=== PATIENT | male | born 1950 | race Caucasian/White ===

== ENCOUNTER → 2020-06-24 | Outpatient (CLI) | payer MEDICARE ==
--- NOTE | 2020-06-24 17:21 | REP ---
INDICATION: PVD COMPARISON: None. TECHNIQUE: Real time cooper scale and Duplex Doppler evaluation of the bilateral lower extremity arterial vasculature using linear high frequency transducer. FINDINGS: Cooper scale and duplex doppler images demonstrate diffuse monophasic waveforms bilaterally. There is occlusion of the entire right superficial femoral artery and proximal right popliteal artery with reconstitution of the popliteal artery at the level of the knee. Diffuse severe plaquing is noted throughout the right lower extremity arterial structures. There is occlusion of the left profunda artery in the entire left superficial femoral artery. Very proximal left popliteal artery is occluded. There is reconstitution of the left popliteal artery at the level of the knee. Diffuse severe plaquing is noted throughout the left lower extremity arterial structures. LOULOU right 0.25 and left 0.50. Peak systolic velocities (cm/sec) Common femoral artery: Right 87; Left 61 Profunda femoris: Right 68; Left occluded SFA (proximal): Right occluded; Left occluded SFA (mid): Right occluded; Left occluded SFA (distal): Right occluded; Left occluded Popliteal artery: Right 19; Left 69 SHAGGY (prox.): Right 10; Left 31 Tibioperoneal trunk: Right 32; Left 42 WORKFORCE SPECIALIST (prox.): Right 55; Left 42 WORKFORCE SPECIALIST (distal): Right 8; Left 43 SHAGGY (distal): Right 20; Left 17 IMPRESSION: Severe diffuse plaquing bilaterally. There is occlusion of the superficial femoral arteries bilaterally with reconstitution of the popliteal arteries at the level of the knees. Left profunda is occluded. <Electronically signed by Héctor Cooper > 06/24/20 [id number]
== END ==
LOC: M RAD 14:18
PROVIDERS: ATTEND Podiatrist Foot & Ankle Surgery
DX: I73.9 Peripheral vascular disease, unspecified (principal); I70.92 Chronic total occlusion of artery of the extremities

== ENCOUNTER → 2020-07-15 | Outpatient (CLI) | payer MEDICARE ==
[2020-07-15 15:10] LABS: HEMATOCRIT 44.1 % (42.0-52.0); HEMOGLOBIN 13.9 g/dl (13.5-17.5); MEAN CORPUSCULAR HGB CONC 31.5 g/dl (32.0-36.5); MEAN CORPUSCULAR VOLUME 91.9 fl (80.0-96.0); PLATELET COUNT, AUTOMATED 169 10^3/uL (150-450); WHITE BLOOD COUNT 7.9 10^3/uL (4.0-10.0)
[2020-07-15 15:36] LABS: BLOOD UREA NITROGEN 12 MG/DL (7-18); CALCIUM LEVEL 9.5 MG/DL (8.8-10.2); CARBON DIOXIDE LEVEL 27 MEQ/L (21-32); CHLORIDE LEVEL 108 MEQ/L (98-107); CREATININE FOR GFR 1.26 MG/DL (0.70-1.30); GLOMERULAR FILTRATION RATE > 60.0 (>42); GLUCOSE, FASTING 110 MG/DL (70-100); POTASSIUM SERUM 4.4 MEQ/L (3.5-5.1); SODIUM LEVEL 139 MEQ/L (136-145)
== END ==
LOC: M LAB 14:35
PROVIDERS: ATTEND Physician Assistant
DX: I70.213 Atherosclerosis of native arteries of extremities with intermittent claudication, bilateral legs (principal)

== ENCOUNTER → 2020-08-11 | Outpatient (CLI) | payer MEDICARE ==
[~2020-08-11] MED LIST: ACET-683 PO; ACET25TA12 PO; ASPI81TA26 PO; ATOR40TA75 PO; CLOP75TA2 PO; IBUP-1114 PO; ISOVUE-300 61% 50ML VIAL As Ordered ONE; LIDOCAINE 1% MDV 20ML VIAL As Ordered ONE; MIDAZOLAM INJ 2MG/2ML VIAL (J2250 PER 1MG) As Ordered ONE; NEOM28.32 TOP; VARE05TA PO; fentaNYL 100 MCG/2 ML INJECTION (J3010) As Ordered ONE
--- NOTE | 2020-08-11 11:17 | ROOPDOC ---
[facility] Report Of Operation Report of Operation DATE OF PROCEDURE: 08/11/20 PREPROCEDURE DIAGNOSES: Atherosclerosis of the [place] arteries with right lower extremity rest pain and nonhealing wounds right foot POSTPROCEDURE DIAGNOSES: Same PROCEDURE: 1. Ultrasound-guided access left common femoral artery 2. Aortoiliofemoral arteriogram 3. Right lower extremity runoff 4. Predilation left iliac arteries with 6 x 100 [place] balloon 5. Stent left common iliac artery with a 9 x 57 express balloon expandable stent, extended into external iliac artery with 8 x 57 express balloon expandable stent 6. Completion arteriogram 7. Left lower extremity arteriogram with runoff 8. Mynx closure left common femoral artery SURGEON: Yojana Ellsworth MD ANESTHESIA: Local anesthesia 5 mL lidocaine. Moderate intravenous conscious sedation was supervised by Dr. Ellsworth. The patient was independently monitored by a registered nurse assigned to the Department of radiology using automated blood pressure, EKG, and pulse oximetry. The detailed sedation record is permanently stored in the hospital information system. The following is a brief sedation record: Start time 10:12, stop time 10:49, Versed 1 mg IV, fentanyl 50 g IV, heparin 2000 units IV. CONTRAST: 59 mL Isovue-300 INDICATION FOR PROCEDURE: This is a very pleasant 69-year-old gentleman with severe atherosclerosis in the [place] arteries, long-standing history of tobacco abuse, who sees Dr. Lester and has non-healing wounds of the right foot. He also has rest pain in the right lower extremity. Claudication is present in the left lower extremity. Risks benefits and alternatives to her right lower extremity arteriogram potential intervention were explained to the patient. He is agreeable to proceed. Informed consent was obtained. We had a long discussion today pre-and postprocedure about smoking cessation and the patient understands this is critical for limb preservation. INTERPRETATION: 1. The distal aorta is calcified but widely patent. The common iliac arteries are patent at the bifurcation, but the right common iliac artery occludes a few centimeters from its origin and does not reconstitute until the common femoral artery from collaterals from the lumbar arteries, inferior epigastric artery, the left iliac vessels. The right common iliac artery is ectatic but patent proximally, but then has heavy plaque and near occlusions throughout the midportion and extending into the external iliac artery. The hypogastric is patent. 2. The right common femoral artery has near occlusive bulky plaque in the midportion, then has some flow into the profunda with a total occlusion of the origin of the SFA. The profunda offer some collaterals for a short segment reconstitution of the SFA, then occlusion again with collaterals filling the tibial vessels at their origin. The entire distal SFA is occluded as well as the popliteal artery. However, with fairly good collateral flow in the upper leg, there is somehow 3 vessel runoff to the foot that is actually quite good. 3. After predilation of the left iliac system, there is improved luminal flow that should allow for balloon expandable stent placement. After deploying balloon expandable stents from the proximal origin of the common iliac artery to the distal external iliac artery, there is widely patent flow with no significant residual stenosis, no extravasation, no dissection, no embolization. There is improved flow through the collaterals from the left iliac system to the right side as well. 4. The left common femoral artery is calcified and ectatic but patent with good flow under the profunda. The SFAs occluded at the origin. There is good profunda flow down to the below-knee popliteal artery which is patent with 3 vessel runoff to the foot. There are good collateral vessels throughout the upper left lower extremity to compensate for SFA and proximal popliteal occlusion. REPORT OF OPERATION: The patient was brought to the [facility] graphic suite in stable condition. Bilateral groins were prepped and draped in sterile fashion. A timeout was performed. Sedation was administered without complication. Local anesthesia was administered to the skin and subcutaneous tissue over the left common femoral artery. A microneedle was used to access the artery under ultrasound guidance. A wire was passed through this access and the needle was removed. A 4 [place] sheath was placed flushed with saline. We could not advance a Glidewire easily into the distal aorta. Therefore, a quick arteriogram of the left iliac system through the sheath was performed. We found there was heavy near occlusive plaque in the distal common iliac artery, proximal external iliac artery. There is also irregularity of this plaque and I think our wire was getting caught under the plaque. However, after this imaging, I was able to navigate the wire and the triple-lumen up into the distal aorta. A flushing catheter was advanced over the wire and aortoiliofemoral arteriograms were performed, please interpretation above. I did try to cross antegrade through the occlusion in the right iliac artery, but this was a long-standing very calcified occlusion. I did not think we would be able to cross retrograde because I was not sure we can even get into the common femoral artery safely due to near occlusive plaque. If we were able to access the artery, I'm not sure we can get her sheath and far enough to allow us to trying cross, and the occlusion is so long-standing and calcified it did not think we would be successful. Therefore we did not make any further efforts to cross the right occluded iliac system. A runoff of the right lower extremity was performed from the catheter and the distal aorta. This allowed us to see collateral flow into the right leg from both the lumbar arteries, inferior epigastric artery, and the left iliac arteries. Please interpretation above. We then predilated the left iliac system with a 6 x 100 [place] balloon. Following this, arteriogram showed improved luminal flow. We are hopeful this would allow us to place the balloon expandable stent without the stent being dislodged on the calcium in the vessel. Subsequently we advanced a 9 x 57 express stent to the origin of the left common iliac artery. This was deployed and we then placed an 8 x 57 balloon expandable stent with a 1 cm overlap into the external iliac artery on the left. We also postdilated juncture of the stent with the 8 x 57 balloon. Completion arteriograms showed a marked improvement inflow through the left iliac system with no extravasation embolization or dissection. There was also improvement inflow from the left iliac system into the right iliac system through the collaterals. We then deployed a Mynx closure device the left common femoral artery with good hemostasis. Pressure was held and sterile dressings were applied. The patient was taken to recovery in stable condition. He tolerated the procedure well. ESTIMATED BLOOD LOSS: Approximately 5 mL. COMPLICATIONS: none. PLAN: Okay to resume home diet and medications. Patient will need Plavix for 60 days postprocedure. We will see him back in clinic to check his access site and discuss options for surgical intervention. I had a heart to heart with the patient that everything we are going to try to do to improve blood flow in his right leg is going to feel if he keeps smoking. He did quit recently for 2 weeks, but then started again. I have discussed with him that at this point it is either the cigarettes or limb salvage but not both. He understands this. I think the plan will be for bilateral common femoral endarterectomies, a [id number] femorofemoral bypass, with possible left to very distal below knee popliteal artery bypass with cadaver vein or greater saphenous vein. We will obtain a vein mapping today to see if the patient has suitable vein for bypass. Depending on clearance and his cardiac status, we may be able to accomplish all of this procedure on 1 surgery. However, he may have enough improvement to get out of rest pain and heal his foot with just an endarterectomy and femorofemoral bypass. This would for sure get him out of rest pain, but I'm not sure it would be enough blood flow to his foot. He has good tibial flow and good collaterals, and if he quit smoking, this added inflow was likely be enough. Technically, we could also consider a left femoropopliteal bypass as well, but since his symptoms in the left leg are not as severe and he has great collateral flow, I think improving his inflow through the iliac system and an endarterectomy at the time of femorofemoral bypass will likely be sufficient. I did discuss with the patient that he is risk for limb loss regardless if his foot and leg acutely decompensated while we are working him up for surgery. Therefore, we will expedite things as much as possible, but he needs to do his part and quit smoking. We appreciate the opportunity to participate in the care of this patient. YOJANA ELLSWORTH MD Aug 11, 2020 11:17
[2020-08-11 15:00] VITALS: BP 113/70
--- NOTE | 2020-08-14 19:08 | REP ---
INDICATION: BLE vein map GSV/LSV preop R fempop bypass COMPARISON: None. TECHNIQUE: Cooper scale and color Doppler evaluation of the right and left lower extremity using linear high frequency transducer. FINDINGS: Ultrasound examination of the bilateral lower extremity deep venous structures from the common femoral vein to the popliteal vein demonstrates normal compressibility, flow and wave patterns in response to respiration and augmentation. There is no evidence for deep venous thrombosis. Greater saphenous vein (GSF) diameter (mm) RIGHT / LEFT Proximal: 4.3 / 3.5 Mid thigh: 2.9 / 1.8 Distal thigh: 3.2 / 1.5 Proximal calf: 2.7 / 1.5 Mid calf: 3.2 / 1.4 Proximal SSV: 2.1 / 0.8 Mid SSV: 3.2 / 0.7 IMPRESSION: No evidence for deep venous thrombosis. <Electronically signed by Raji Maldonado > 08/14/20 [id number]
== END ==
LOC: M IRPRO 08:30
PROVIDERS: ATTEND Surgery Vascular Surgery
DX: I70.221 Atherosclerosis of native arteries of extremities with rest pain, right leg (principal); I70.235 Atherosclerosis of native arteries of right leg with ulceration of other part of foot; I70.213 Atherosclerosis of native arteries of extremities with intermittent claudication, bilateral legs; F17.210 Nicotine dependence, cigarettes, uncomplicated
CPT/HCPCS: 37221; 75630; 93970; 99152; 99153; C1725; C1760; C1769; C1876; C1887; C1894; G0463; J1644; J2250; J3010; Q9967

== ENCOUNTER → 2020-09-16 | Outpatient (CLI) | payer MEDICARE ==
[~2020-09-16] MED LIST changes: -ISOVUE-300 61% 50ML VIAL As Ordered ONE; -LIDOCAINE 1% MDV 20ML VIAL As Ordered ONE; -MIDAZOLAM INJ 2MG/2ML VIAL (J2250 PER 1MG) As Ordered ONE; -fentaNYL 100 MCG/2 ML INJECTION (J3010) As Ordered ONE
[2020-09-16 17:14] LABS: BASO % 0.4 % (0.0-1.0); EOS # 0.1 10^3/uL (0.0-0.5); EOS % 0.9 % (0.0-3.0); HEMATOCRIT 43.6 % (42.0-52.0); HEMOGLOBIN 13.6 g/dl (13.5-17.5); LYMPH # 2.1 10^3/uL (1.5-5.0); LYMPH % 27.8 % (24.0-44.0); MEAN CORPUSCULAR HEMOGLOBIN 28.2 pg (27.0-33.0); MEAN CORPUSCULAR HGB CONC 31.2 g/dl (32.0-36.5); MEAN CORPUSCULAR VOLUME 90.3 fl (80.0-96.0); MONO # 0.6 10^3/uL (0.0-0.8); MONO % 8.4 % (2.0-8.0); NEUTROPHILS # 4.7 10^3/uL (1.5-8.5); NEUTROPHILS % 62.1 % (36.0-66.0); PLATELET COUNT, AUTOMATED 215 10^3/uL (150-450); RED BLOOD COUNT 4.83 10^6/uL (4.30-6.10); WHITE BLOOD COUNT 7.6 10^3/uL (4.0-10.0)
[2020-09-16 17:52] LABS: ALBUMIN 4.1 GM/DL (3.2-5.2); ALT/SGPT 19 U/L (12-78); BILIRUBIN,TOTAL 0.5 MG/DL (0.2-1.0); BLOOD UREA NITROGEN 9 MG/DL (7-18); CALCIUM LEVEL 8.8 MG/DL (8.8-10.2); CARBON DIOXIDE LEVEL 25 MEQ/L (21-32); CHLORIDE LEVEL 104 MEQ/L (98-107); CREATININE FOR GFR 1.11 MG/DL (0.70-1.30); GLOMERULAR FILTRATION RATE > 60.0 (>42); GLUCOSE, FASTING 92 MG/DL (70-100); MAGNESIUM LEVEL 2.1 MG/DL (1.8-2.4); NT-PRO BNP 2040 PG/ML (<125); POTASSIUM SERUM 4.3 MEQ/L (3.5-5.1); SODIUM LEVEL 138 MEQ/L (136-145); TOTAL PROTEIN 7.5 GM/DL (6.4-8.2)
[2020-09-17 09:44] LABS: CHOLESTEROL LEVEL 145 MG/DL (<200); CHOLESTEROL RISK RATIO 2.843 (<5); HDL CHOLESTEROL 51 MG/DL (>40); LDL CHOLESTEROL 71 MG/DL (<100); NON-HDL-C 94 MG/DL; TRIGLYCERIDES LEVEL 115 MG/DL (<150)
== END ==
LOC: M LAB 15:50
PROVIDERS: ATTEND Internal Medicine Cardiovascular Disease
DX: R06.02 Shortness of breath (principal); I49.3 Ventricular premature depolarization; I73.9 Peripheral vascular disease, unspecified; R01.1 Cardiac murmur, unspecified; Z79.899 Other long term (current) drug therapy

== ENCOUNTER → 2020-09-24 | Outpatient (CLI) | payer MEDICARE ==
--- NOTE | 2020-09-24 14:15 | REPVR ---
PROCEDURE INFORMATION: Exam: CT Chest Without Contrast; Diagnostic Exam date and time: 09/24/2020 1:49 PM Age: 69 years old Clinical indication: Other: Copd; Additional info: Oth sign/symptom cirrculatory system, nicotine/copd/ echo 2nd TECHNIQUE: Imaging protocol: Diagnostic computed tomography of the chest without contrast. 3D rendering (Not supervised by radiologist): MIP and/or 3D reconstructed images were created by the technologist. Radiation optimization: All CT scans at this facility use at least one of these dose optimization techniques: automated exposure control; mA and/or kV adjustment per patient size (includes targeted exams where dose is matched to clinical indication); or iterative reconstruction. COMPARISON: No relevant prior studies available. FINDINGS: Thyroid: The thyroid gland is normal. Lungs: There is mild hyperdensity along the lateral surface of the descending aorta which appears to represent atelectatic change in adjacent left lower lobe. There is a 6 mm sharply defined nodule in the right lower lobe axial image 65 which is not definitely calcified. Pleural spaces: Unremarkable. No pneumothorax. No pleural effusion. Heart: Unremarkable. No cardiomegaly. No pericardial effusion. 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 The diameter tapers to 36 mm on axial image 59 at T9. The diameter is 41 mm at T12 and 37 mm at L1 opposite the origin of the celiac trunk. There is mild dilatation of the ascending aorta measuring 42.5 mm on coronal image 33 and 45 mm on axial image 42. The diameter at the sinotubular junction is about 33 mm. Diameter is about 33 mm at the sinus of bowel sella and 25 mm at the aortic annulus. Lymph nodes: Unremarkable. No enlarged lymph nodes. Liver: Upper abdomen: The visualized portions of the liver, pancreas, adrenal glands, and spleen show no significant abnormalities. Bones/joints: See "Aorta" finding. Soft tissues: Unremarkable. IMPRESSION: 1. 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 The diameter tapers to 36 mm on axial image 59 at T9. The diameter is 41 mm at T12 and 37 mm at L1 opposite the origin of the celiac trunk. 2. There is mild hyperdensity along the lateral surface of the descending aorta which appears to represent atelectatic change in adjacent left lower lobe. 3. There is mild dilatation of the ascending aorta measuring 42.5 mm on coronal image 33 and 45 mm on axial image 42. The diameter at the sinotubular junction is about 33 mm. Diameter is about 33 mm at the sinus of bowel sella and 25 mm at the aortic annulus. 4. There is a 6 mm sharply defined nodule in the right lower lobe axial image 65 which is not definitely calcified. RECOMMENDATION: As per revised Fleischner Society guidelines for follow-up and management of solid pulmonary nodules: For patients at low risk (minimal or absent history of smoking and of other known risk factors), recommend initial follow-up chest CT at 6-12 months for multiple nodules or 3-6 months for a single nodule then consider CT at 18-24 months if no change. For patients at high risk (history of smoking or of other known risk factors), new recommendations are the same as for low risk individuals. Electronically signed by: Nehemiah Recio On 09/24/2020 14:15:30 PM
--- NOTE | 2020-09-24 15:18 | REP ---
INDICATION: OTH SYPM AND SIGNS INVOLVING THE CIRC AND RESP SYS severe peripheral vascular disease. COMPARISON: None. TECHNIQUE: Real-time ultrasound evaluation and duplex Doppler interrogation of the extracranial carotid vasculature is performed. FINDINGS: Antegrade flow is observed in both vertebral arteries. Right carotid: There is moderate mixed plaquing in the distal common carotid artery on the right side. Echogenic plaquing is seen with occlusion of the right internal carotid artery. There is somewhat slow proximal CCA flow velocity question inflow disease.. Velocity chart right carotid: Right CCA PSV: 42 cm/S Right ICA PSV: 0 cm/S Right ICA EDV: 0 cm/S Right ECA PSV: 84 cm/S Right ICA/CCA ratio: 0 Left carotid: There is mixed plaquing in the distal CCA bulb and proximal ICA on the left side. Color flow and spectral Doppler interrogation are unremarkable on the left.. 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 Moderate plaquing in the common carotid artery. Less than 50% category narrowing in the left ICA by Doppler velocity criteria. <Electronically signed by Carlitos Chatman > 09/24/20 [id number]
== END ==
LOC: M RAD 13:29
PROVIDERS: ATTEND Internal Medicine Cardiovascular Disease
DX: I65.21 Occlusion and stenosis of right carotid artery (principal); I71.9 Aortic aneurysm of unspecified site, without rupture; R91.8 Other nonspecific abnormal finding of lung field; R09.89 Other specified symptoms and signs involving the circulatory and respiratory systems; F17.218 Nicotine dependence, cigarettes, with other nicotine-induced disorders; J44.9 Chronic obstructive pulmonary disease, unspecified; R06.02 Shortness of breath

== ENCOUNTER → 2020-09-25 | Outpatient (CLI) | payer MEDICARE | LOC: M LABSMTC 10:41 | PROVIDERS: ATTEND Anesthesiology | DX: Z01.818 Encounter for other preprocedural examination (principal); Z20.822 Contact with and (suspected) exposure to COVID-19 ==

== ENCOUNTER → 2020-12-11 | Outpatient (CLI) | payer MEDICARE, MEDICAID | LOC: M LABSMTC 12:46 | PROVIDERS: ATTEND Surgery Vascular Surgery | DX: Z20.828 Contact with and (suspected) exposure to other viral communicable diseases (principal); Z11.59 Encounter for screening for other viral diseases ==